=== PATIENT | female | born 1995 | race Caucasian/White ===

== ENCOUNTER → 2016-07-21 | Outpatient (REF) | payer BC | LOC: M LAB REF 09:10 | PROVIDERS: ATTEND Physician Assistant | DX: J02.9 Acute pharyngitis, unspecified (principal) ==

== ENCOUNTER → 2017-08-04 | Outpatient (REF) | payer BC | LOC: M LAB REF 18:31 | DX: Z12.4 Encounter for screening for malignant neoplasm of cervix (principal) | CPT/HCPCS: G0123 ==

== ENCOUNTER → 2018-10-13 | Outpatient (REF) | payer BC | LOC: M LAB REF 12:56 | PROVIDERS: ATTEND Advanced Practice Midwife | DX: Z12.4 Encounter for screening for malignant neoplasm of cervix (principal) ==

== ENCOUNTER → 2020-07-14 | Outpatient (REF) | payer BC | LOC: M SFHCWAGY 13:40 | PROVIDERS: ATTEND Advanced Practice Midwife | DX: Z12.4 Encounter for screening for malignant neoplasm of cervix (principal); R87.610 Atypical squamous cells of undetermined significance on cytologic smear of cervix (ASC-US) | CPT/HCPCS: 87624; G0123 ==

== ENCOUNTER → 2020-08-22 | Outpatient (REF) | payer BC ==
[2020-08-22 14:01] LABS: HEMATOCRIT 40.1 % (36.0-47.0); HEMOGLOBIN 13.4 g/dl (12.0-15.5); MEAN CORPUSCULAR HEMOGLOBIN 31.5 pg (27.0-33.0); MEAN CORPUSCULAR HGB CONC 33.4 g/dl (32.0-36.5); MEAN CORPUSCULAR VOLUME 94.4 fl (80.0-96.0); PLATELET COUNT, AUTOMATED 215 10^3/uL (150-450); RED BLOOD COUNT 4.25 10^6/uL (4.00-5.40); WHITE BLOOD COUNT 6.5 10^3/uL (4.0-10.0)
[2020-08-22 15:23] LABS: HEPATITIS C VIRUS ABY INDEX 0.1 INDEX (<0.8); HIV 1&2 SCREEN CENTAUR NEGATIVE (NEGATIVE)
[2020-08-22 15:47] LABS: CHLAMYDIA DNA AMPLIFICATION NEGATIVE (NEGATIVE); GC DNA AMPLIFICATION NEGATIVE (NEGATIVE)
== END ==
LOC: M PLALAB 10:26
PROVIDERS: ATTEND Advanced Practice Midwife
DX: Z34.01 Encounter for supervision of normal first pregnancy, first trimester (principal)

== ENCOUNTER → 2020-10-17 | Outpatient (CLI) | payer BC ==
--- NOTE | 2020-10-17 13:15 | REP ---
INDICATION: ANATOMY. COMPARISON: None. TECHNIQUE: Transabdominal FINDINGS: 03/16/ Today's sono findings = 18 weeks 4 days, MARGUERITE (today's sono) = 03/16/2021 via composite criteria Number: 1 Position: Breech Heart Rate: 134 BPM S/D Ratio: Not obtained Placental Position: Posterior Placenta Previa: None low Lying: No abruption: None Amniotic Fluid Volume: Subjectively within normal limits DINORA: Not calculated DINORA: Normal Range: cm Cervix Length 3.2 cm, and closed MEASUREMENTS: BPD: 4.1 centimeters, eighteen weeks 4 days HC: 15.5 centimeters, 18 weeks 3 days AC: 13.0 centimeters, 18 weeks 4 days FL: 2.8 centimeters, 18 weeks 4 days Estimated Weight: 246 grams 71 percentile Lateral Ventricle not obtained mm The following structures are visualized and are unremarkable: Thalami, cavum septum pellucidum, cerebellum, cisterna magna, cerebral ventricles, spine, kidneys, stomach, four-chamber heart, ventricular outflow tracts, urinary bladder, upper lip, spine, and upper lower extremities IMPRESSION: Single living intrauterine gestation as described above with an estimated gestational age of 18 weeks 4 days via composite criteria and an estimated date of delivery of 03/16/2021 by today's exam. No anomalies were detected. <Electronically signed by Bhargav Guajardo > 10/17/20 [id number]
== END ==
LOC: M WHC 11:35
PROVIDERS: ATTEND Advanced Practice Midwife
DX: Z36.89 Encounter for other specified antenatal screening (principal); Z3A.18 18 weeks gestation of pregnancy

== ENCOUNTER → 2020-11-14 | Outpatient (CLI) | payer BC ==
--- NOTE | 2020-11-16 07:21 | REP ---
INDICATION: F/U ANATOMY COMPARISON: 10/17/2020 TECHNIQUE: Transabdominal obstetrical ultrasound with color Doppler evaluation. FINDINGS: Examination demonstrates a single live intrauterine in cephalic presentation. motion is identified by technologist. Placenta is noted posterior and grade 1 without evidence for placenta previa or abruption. Amniotic fluid volume is normal. Cervix measures 4.2 cm in length and appears closed.. Gestational age by LMP and 1st U/S 22 weeks 1 days with MARGUERITE 03/19/2021. Gestational age by current measurements 22 weeks 3 days with MARGUERITE 03/17/2021. FHR equals 144 beats per minute. Estimated weight 492 grams (51stpercentile). Anatomical assessment demonstrates normal structures without obvious abnormality. IMPRESSION: Single live intrauterine in cephalic presentation demonstrating appropriate estimated weight and growth. No gross abnormalities are identified. <Electronically signed by Khang Barahona > 11/16/20 [id number]
== END ==
LOC: M WHC 14:27
PROVIDERS: ATTEND Advanced Practice Midwife
DX: Z34.02 Encounter for supervision of normal first pregnancy, second trimester (principal); Z3A.22 22 weeks gestation of pregnancy

== ENCOUNTER → 2021-02-23 | Outpatient (REF) | payer BC | LOC: M SFHCWAGY 12:51 | PROVIDERS: ATTEND Specialist | DX: Z36.89 Encounter for other specified antenatal screening (principal) ==

== ENCOUNTER 2021-03-27 13:11 | Inpatient (IN) | payer BC ==
[~2021-03-27] VITALS: Ht 162.6 cm; Wt 89.3 kg
[2021-03-27] VITALS (34 sets, daily range): BP systolic 124–201; BP diastolic 67–115
[2021-03-27] MEDS ORDERED: PRENTAB9 PO (13:21)
[2021-03-27] MEDS ORDERED: OXYTOCIN DRIP 30 UNITS in IV 1 EA IV PRN ×4 (13:25)
[2021-03-27] MEDS ORDERED: OXYTOCIN INJ 10 UNITS/ML VIAL (J2590) IM PRN (13:25)
[2021-03-27] MEDS ORDERED: CARBOPROST TROMETHAMINE 250 MCG/ML AMP IM PRN (13:25)
[2021-03-27] MEDS ORDERED: LIDOCAINE 1% MDV 20ML VIAL INFIL PRN (13:25)
[2021-03-27] MEDS ORDERED: TRANEXAMIC ACID INJection 1,000 MG in NS 100 ML IV PRN (13:25)
[2021-03-27] MEDS ORDERED: LR 1,000 ML IV SCH (13:30)
[2021-03-27] MEDS ORDERED: OXYTOCIN DRIP 30 UNITS in IV 1 EA IV SCH (13:30)
[2021-03-27 14:32] LABS: HEMATOCRIT 36.8 % (36.0-47.0); HEMOGLOBIN 12.2 g/dl (12.0-15.5); MEAN CORPUSCULAR HEMOGLOBIN 29.4 pg (27.0-33.0); MEAN CORPUSCULAR HGB CONC 33.2 g/dl (32.0-36.5); MEAN CORPUSCULAR VOLUME 88.7 fl (80.0-96.0); PLATELET COUNT, AUTOMATED 152 10^3/uL (150-450); RED BLOOD COUNT 4.15 10^6/uL (4.00-5.40)
[2021-03-27 15:31] LABS: ALT/SGPT 17 U/L (12-78); BILIRUBIN,TOTAL 0.4 MG/DL (0.2-1.0); CREATININE FOR GFR 0.73 MG/DL (0.55-1.30); GLOMERULAR FILTRATION RATE > 60.0 (>60); LDH LACTATE DEHYDROGENASE 335 U/L (84-246); URIC ACID 5.5 MG/DL (2.6-6.0)
[2021-03-27 16:24] LABS: CREATININE,RANDOM URINE 50.5 MG/DL; TOTAL PROTEIN,RANDOM URINE 20.9 MG/DL (0.0-12.0)
--- NOTE | 2021-03-27 17:28 | HPE ---
HISTORY AND PHYSICAL DATE OF ADMISSION: 03/27/2021 Barbie is a 26-year-old 1, para 0 at 41-1/7 weeks gestation, estimated date of confinement (EDC) of 03/09/2021 based on last menstrual period and confirmed by first-trimester ultrasound. She presents to labor and delivery today following routine appointment for a nonstress test and was noted to have mildly elevated blood pressure in the office and was sent over for evaluation and induction of labor. She does report some occasional contractions. Denies vaginal bleeding and leakage of fluid. Fetus has been active. She denies headache, visual disturbances, right upper quadrant pain, and epigastric discomfort. Her care was initiated at [facility] in the first trimester. course has been uncomplicated until today's presentation. OBSTETRIC HISTORY: Prima . OBSTETRIC LABORATORY DATA: A positive, antibody screen negative, syphilis negative, gonorrhea and chlamydia negative, hepatitis B negative, hepatitis C negative, HIV negative, rubella immune. Gestational diabetic screening normal at 100. Urine culture no growth. GBS is negative. PAST MEDICAL HISTORY: Noncontributory. SURGERIES: None. FAMILY HISTORY: Hypercholesterolemia and hypertension. SOCIAL HISTORY: The patient is a nonsomker. She denies alcohol and drug use. No history of sexual transmitted infections. She denies history of abuse, physical, sexual, and emotional. ALLERGIES: No known drug allergies. CURRENT MEDICATION: vitamin. OBJECTIVE: Blood pressure elevated upon arrival at 140/97. Followups 132/93. heart rate 140 with moderate variability, positive accelerations, negative decelerations. Contractions are every 2-4 minutes. They palpate mild. Abdomen is gravid. Cephalic presentation. Estimated weight 7-1/2 to 8 pounds. Sterile vaginal exam: 2 cm dilated 80% effaced, -3 station, soft. Positive bloody show with the exam. Pre-eclamptic profile returned uric acid of 5.5. AST 26, ALT 17. LDH 335. Hemoglobin 12.2, hematocrit 36.8, and platelets 152. Spot urine is pending at this time. ASSESSMENT: Intrauterine at 41-1/7 weeks, heart rate category 1. pre- eclampsia. PLAN: Per consult with Dr. Flora Eaton, admit to labor and delivery. Routine laboratory. Out of bed ad juvenal. Clear liquid diet at this time. Start intravenous (IV) Pitocin for labor induction. I did review risks, benefits, and alternatives with the patient and her partner. All of their questions have been answered. She has been verbally consented for emergency surgery and blood products if they are necessary. I do anticipate active labor and a vaginal delivery. The patient is desiring an epidural when she is in active labor. AILEEN
[2021-03-27] MEDS ORDERED: FENTANYL 2MCG/ML ROPIVACAINE 0.2% IN 0.9% NACL 100ML IVBAG As Ordered ONE (19:48)
[2021-03-27] MEDS ORDERED: ePHEDrine SULFATE 25 MG/5 ML(5MG/ML) SYRINGE As Ordered ONE (20:55)
[2021-03-27] MEDS ORDERED: ePHEDrine SULFATE 25 MG/5 ML(5MG/ML) SYRINGE IV PRN (21:20)
[2021-03-27] MEDS ORDERED: ONDANSETRON 4MG/2ML VIAL IV PRN ×4 (21:20→23:55)
[2021-03-27] MEDS ORDERED: EPIDURAL COMMENT XX SCH (21:20)
[2021-03-27] MEDS ORDERED: FENTANYL/ROPIVACAINE/NACL BAG 100 ML EPIDURAL SCH (21:20)
[2021-03-27] MEDS ORDERED: NALOXONE INJ 0.4MG/1ML VIAL (J2310 PER 1MG) IV PRN ×3 (21:20→22:27)
[2021-03-27] MEDS ORDERED: REFRIGERATOR IV KEYS XX PRN (21:20)
[2021-03-27] MEDS ORDERED: diphenhydrAMINE 50MG/ML VIAL (J1200) IV PRN ×2 (21:20→22:27)
[2021-03-27] MEDS ORDERED: LACTATED RINGER'S 1000 ML IV PRN (21:20)
[2021-03-27] MEDS ORDERED: EPIDURAL/PCA KEYS XX PRN (21:20)
[2021-03-27] MEDS ORDERED: AZITHROMYCIN INJ 500 MG, VIAL MATE ADAPTER 1 EACH in NS 250 ML IV ONE (22:00)
[2021-03-27] MEDS ORDERED: ceFAZolin SOD 2 GM in IV 1 EA IV ONE (22:00)
[2021-03-27] MEDS ORDERED: BICITRA 30ML SOLN UDC PO ONE (22:00)
[2021-03-27] MEDS ORDERED: NALBUPHINE HCL 10 MG/ML AMP (J2300) IV PRN (22:27)
[2021-03-27] MEDS ORDERED: METOCLOPRAMIDE INJ 10MG/2ML VIAL (J2765 PER 1) IV PRN (22:27)
[2021-03-27] MEDS ORDERED: OXYTOCIN INJ 10 UNITS/ML VIAL (J2590) As Ordered ONE (22:32)
[2021-03-27] MEDS ORDERED: MORPHINE PRES-FREE INJ 10 MG/10 ML VIAL (J2274) As Ordered ONE (22:32)
[2021-03-27 23:26] LABS: CORD GAS HCO3 V 23.2 MEQ/L; CORD GAS O2 SAT V 56.5 %; CORD GAS PCO2 V 49.6 mmHg; CORD GAS PH V 7.288 UNITS; CORD GAS PO2 V 28.4 mmHg; CORD GAS SBC V 20.1 MEQ/L; CORD GAS TCO2 V 24.7 MEQ/L
[2021-03-27 23:28] LABS: CORD GAS ABE A -7.5; CORD GAS HCO3 A 18.9 MEQ/L; CORD GAS O2 SAT A 95.2 %; CORD GAS PCO2 A 41.3 mmHg; CORD GAS PH A 7.278 UNITS; CORD GAS PO2 A 75.7 mmHg; CORD GAS SBC A 18.5 MEQ/L; CORD GAS TCO2 A 20.2 MEQ/L
[2021-03-27] MEDS ORDERED: RHOGAM 300 MCG (1500 IU) INJ (J2790) IM SCH (23:50)
[2021-03-27] MEDS ORDERED: SIMETHICONE 80MG CHEW TAB PO PRN (23:50)
[2021-03-27] MEDS ORDERED: MEASLES,MUMPS,RUBELLA VACCINE INJ (MMR-II) (90707) SC SCH (23:50)
[2021-03-27] MEDS ORDERED: oxyCODONE 5MG TAB PO PRN ×2 (23:50→23:55)
[2021-03-27] MEDS ORDERED: fentaNYL 100 MCG/2 ML INJECTION (J3010) IV PRN (23:55)
[2021-03-27] MEDS ORDERED: KETOROLAC 30 MG/ML 1ML VIAL IV PRN (23:55)
[2021-03-28] VITALS (7 sets, daily range): BP systolic 126–144; BP diastolic 70–93
--- NOTE | 2021-03-28 00:20 | ROOPDOC ---
[facility] Report Of Operation Report of Operation DATE OF PROCEDURE: 03/27/21 PREPROCEDURE DIAGNOSES: 1. Intrauterine gestation at term 2. intolerance of labor 3. Preeclampsia without severe features. POSTPROCEDURE DIAGNOSES: Same. PROCEDURE PERFORMED: Primary low transverse section. SURGEON: Flora Candelario MD SPRING MAKER: Marquita Gomez MD ANESTHESIA: Spinal. ESTIMATED BLOOD LOSS: Approximately 500 mL. IVF: 1500 crystalloid UOP: 100cc clear yellow OPERATIVE START TIME: 2237 OPERATIVE END TIME: 2337 TIME OF DELIVERY: 2246 TIME OF PLACENTA: 2248 COMPLICATIONS: Superficial laceration of arm. INDICATION FOR PROCEDURE: Patient is a 26-year-old G1, P0 at 41 weeks and 1 day estimated gestational age who presented to labor and delivery for induction of labor for a diagnosis of late term and elevated blood pressures. Once patient arrived to labor and delivery baseline labs were acquired which showed proteinuria giving her the diagnosis of preeclampsia without severe features. The patient was found to be 2 cm dilated and therefore the decision was made to start Pitocin. She progressed to 5 cm dilation and received an epidural. The heart tracing showed recurrent variable decelerations with moderate variability. After resuscitative measures failed to correct heart tracing to a category 1 the decision was made to proceed with a primary section. The risks and benefits were reviewed with the patient and informed consent was obtained. FINDINGS: Viable male weighing 3420g with Apgars of 6 and 9 at 1 and 5 minutes respectively. Compound presentation with bilateral arms around head. Right (posterior) arm needed to be reduced back through incision in order to deliver head. SPECIMENS REMOVED: placenta PROCEDURE NOTE: The patient was brought to the operating suite in stable condition for primary low transverse section with epidural anesthesia on board and an indwelling catheter in place in the bladder. The patient was not getting adequate anesthesia from the epidural and therefore the decision was made to proceed with a spinal. The patient was placed supine on the operating room table. The abdomen was prepped and draped in standard fashion for section. After testing with Lisette clamp to assure an adequate anesthetic level, the surgery was commenced. With the scalpel, a Pfannenstiel skin incision was made. Dissection was carried down sharply through the subcutaneous tissues to the underlying fascia. The fascia was knicked on either side of the midline and extended laterally using pick ups and curved Wilson scissors. The inferior aspect of the fascial incision was grasped with kolker clamps and elevated off the underlying rectus muscle with a scalpel. This process was then repeated with the lower aspect of the fascial incision. The peritoneum was identified and entered bluntly and was bluntly stretched laterally and cephalad. The vesicouterine junction was identified and a bladder flap was created by incising transversely through the peritoneum and vesicouterine fold and then bluntly dissecting the bladder distally. A mobius retractor was placed intra-abdominally. With the scalpel, a low transverse hysterotomy was commenced. The serosa and myometrium were scored with the scalpel. When the intrauterine cavity was entered, the arm was scored with the scalpel. The uterine incision was then extended laterally with the operators fingers. The infant hand protruded through the hysterotomy and had to be reduced several times before the delivery of the head could be achieved. An intrauterine hand was placed and the head of the infant was brought up out of the pelvis into the uterine incision. With fundal pressure, the infant was delivered without difficulty. The cord was doubly clamped and transected. The infant was then handed off to the nursery personnel. Due to prolonged length of delivery, a segment of cord was saved and cord gasses were collected. The placenta was manually removed. The uterine cavity was then curetted with a dry sponge and freed of the remaining membranes. The edges of the uterine incision were grasped with T clamps. The uterine incision was then closed in 2 layers of 0 Vicryl sutures. The pelvis and gutters were irrigated and suctioned and cleared of all blood and clots and amniotic fluid. The uterine incision was reinspected to assure hemostasis. The uterus, tubes and ovaries were inspected and were normal. Once we were satisfied with the hemostasis, the mobius retractor was removed and attention was turned to closure of the abdominal incision. The fascia was closed in layers using 0-Vicryl sutures. The subcutaneous tissue was closed with 3-0 vicryl suture. The skin was closed with a subcuticular suture of 4-0 monocryl followed by Steri-Strips and a optifoam dressing. The patient was moved to the recovery room in stable condition with the Arroyo catheter draining clear urine. Instruments, sponge and needle counts were reported as correct. FLORA CANDELARIO MD Mar 28, 2021 00:20
[2021-03-28] MEDS ORDERED: OXYC-517 PO (00:22)
[2021-03-28] MEDS ORDERED: KETOROLAC 30 MG/ML 1ML VIAL As Ordered ONE (00:32)
[2021-03-28] MEDS ORDERED: OXYTOCIN 30 UNITS IN 0.9% NaCl 500ML IV BAG (J2590) As Ordered ONE (00:32)
[2021-03-28] MEDS: OXYTOCIN DRIP 30 UNITS in IV 1 EA IV SCH ×2 (00:48→04:35)
[2021-03-28 07:23] LABS: HEMATOCRIT 30.7 % (36.0-47.0); MEAN CORPUSCULAR HGB CONC 32.2 g/dl (32.0-36.5); PLATELET COUNT, AUTOMATED 127 10^3/uL (150-450); RED BLOOD COUNT 3.41 10^6/uL (4.00-5.40); WHITE BLOOD COUNT 13.1 10^3/uL (4.0-10.0)
[2021-03-28 07:24] LABS: HEMOGLOBIN 9.9 g/dl (12.0-15.5)
[2021-03-28] MEDS: PRENATAL VITAMINS CHEWABLE TABLET PO SCH (08:27)
[2021-03-28] MEDS: KETOROLAC 30 MG/ML 1ML VIAL IV SCH ×3 (08:27→19:39)
[2021-03-28] MEDS: IBUPROFEN 800 MG TAB PO SCH ×3 (09:00→13:45)
[2021-03-28] MEDS: ACETAMINOPHEN 500 MG TAB PO SCH ×2 (10:23→18:18)
[2021-03-29] MEDS: ACETAMINOPHEN 500 MG TAB PO SCH ×4 (00:09→18:01)
[2021-03-29 02:00] VITALS: BP 143/87
[2021-03-29] MEDS: IBUPROFEN 600MG TAB PO SCH ×3 (03:22→15:06)
[2021-03-29 06:00] VITALS: BP 143/85
--- NOTE | 2021-03-29 09:06 | IPNPDOC ---
Progress Note Date of Service: Mar 29, 2021 Day#: 2 Progress Note SUBJECT: Patient is a 26-year-old G 1 P 1 status post uncomplicated primary low transverse section at 41-1/7 weeks' doing well day #2. She has been ambulating, voiding spontaneously without issue and tolerating regular diet. Breast feeding without issue. Reports lochia is like a normal period. Patient is ambulating well. Reports some cramping, well controlled with medication. Voiding and ambulating without difficulty. She is passing flatus. She denies headaches vision changes or right upper quadrant pain. OBJECTIVE: VITAL SIGNS: Within normal limits, afebrile. Alert and oriented times three. Breath sounds clear to auscultation. Heart rate: Regular rate and rhythm, no murmurs, rubs or gallops. Abdomen: Fundus firm at U-2. Soft, appropriately tender to palpation. Incision c/d/i Minimal to moderate lochia. ASSESSMENT: Patient is a 26-year-old G 1 P 1 status post uncomplicated primary low-transverse section for intolerance of labor after presenting to labor and delivery for late term induction. Doing well on day 2. Vitals within normal limits, afebrile, hemodynamically stable with no evidence of infection. PLAN: 1. Discharge to home today if infant is cleared for discharge 2. Tylenol and Motrin for pain. We will send Rx for oxycodone as needed 3. Encourage breast feeding and ambulation. 4. Patient considering contraception undecided at this time 5. Patient to call the office and schedule blood pressure check in 1 week with routine PP visit in 6 weeks in clinic. 6. Discussed return precautions at length including preeclamptic precautions. VS, I&O, 24H, Fishbone Vital Signs/I&O Vital Signs Date Time Temp Pulse Resp B/P (MAP) Pulse Ox O2 Delivery O2 Flow Rate FiO2 03/29/21 06:00 97.6 69 16 143/85 (104) 98 Room Air I&O- Last 24 Hours up to 6 AM 03/29/21 06:00 Intake Total 800 ml Output Total 700 ml Balance 100 ml KENDALL CANDELARIO MD Mar 29, 2021 09:06
[2021-03-29] MEDS ORDERED: IBUP-1022 PO (09:08)
[2021-03-29] MEDS ORDERED: ACET-683 PO (09:08)
[2021-03-29] MEDS: PRENATAL VITAMINS CHEWABLE TABLET PO SCH (09:21)
== END 2021-03-29 19:35 | disposition home or self-care (01) | DRG 540 ==
LOC: M LDI 13:11 → M OBS 03-28 13:42
PROVIDERS: ADMIT Advanced Practice Midwife; ATTEND Obstetrics & Gynecology
PROC: 3E033VJ Introduction of Other Hormone into Peripheral Vein, Percutaneous Approach (ICD-10-PCS; 2021-03-27)
PROC: 10D00Z1 Extraction of Products of Conception, Low, Open Approach (ICD-10-PCS; principal; 2021-03-27 22:20)
DX: O14.04 Mild to moderate pre-eclampsia, complicating childbirth (principal); O48.0 Post-term pregnancy; Z3A.41 41 weeks gestation of pregnancy; O76 Abnormality in fetal heart rate and rhythm complicating labor and delivery; Z37.0 Single live birth

== ENCOUNTER → 2021-12-02 | Outpatient (REF) | payer BC ==
[~2021-12-02] MED LIST: ACET-683 PO; IBUP-1022 PO; OXYC-517 PO; PRENTAB9 PO
== END ==
LOC: M PLALAB 14:37
PROVIDERS: ATTEND Obstetrics & Gynecology
DX: Z53.9 Procedure and treatment not carried out, unspecified reason (principal)

== ENCOUNTER → 2021-12-02 | Outpatient (REF) | payer BC | LOC: M SFHCWAGY 17:10 | PROVIDERS: ATTEND Obstetrics & Gynecology | DX: Z12.4 Encounter for screening for malignant neoplasm of cervix (principal) ==

== ENCOUNTER → 2023-02-25 | Outpatient (CLI) | payer BC ==
[2023-02-25 08:31] LABS: BASO % 0.3 % (0.0-1.0); EOS # 0.1 10^3/uL (0.0-0.5); EOS % 1.9 % (0.0-3.0); HEMATOCRIT 39.8 % (36.0-47.0); HEMOGLOBIN 12.9 g/dl (12.0-15.5); LYMPH # 1.4 10^3/uL (1.5-5.0); MEAN CORPUSCULAR HEMOGLOBIN 30.3 pg (27.0-33.0); MEAN CORPUSCULAR HGB CONC 32.4 g/dl (32.0-36.5); MEAN CORPUSCULAR VOLUME 93.4 fl (80.0-96.0); MONO # 0.4 10^3/uL (0.0-0.8); MONO % 5.8 % (2.0-8.0); NEUTROPHILS # 4.5 10^3/uL (1.5-8.5); NEUTROPHILS % 69.4 % (36.0-66.0); PLATELET COUNT, AUTOMATED 227 10^3/uL (150-450); RED BLOOD COUNT 4.26 10^6/uL (4.00-5.40); WHITE BLOOD COUNT 6.4 10^3/uL (4.0-10.0)
[2023-02-25 09:05] LABS: FERRITIN 9.1 NG/ML (7.3-270.7); IRON (FE) 66 UG/DL (50-170); PERCENT SATURATION 19.1 % (13.2-45.0); THYROID STIMULATING HORMONE 5.566 uIU/ML (0.55-4.78); TOTAL IRON BINDING CAPACITY 346 UG/DL (250-425)
[2023-02-25 09:06] LABS: ALBUMIN 3.9 G/DL (3.2-5.2); ALKALINE PHOSPHATASE 44 U/L (46-116); ALT/SGPT < 9 U/L (7.0-40); AST/SGOT < 8 U/L (<34); BILIRUBIN,TOTAL 0.8 MG/DL (0.3-1.2); BLOOD UREA NITROGEN 10 MG/DL (9-23); CALCIUM LEVEL 9.2 MG/DL (8.5-10.1); CARBON DIOXIDE LEVEL 28 MMOL/L (20-31); CHLORIDE LEVEL 108 MMOL/L (98-107); CHOLESTEROL LEVEL 202 MG/DL (<200); CHOLESTEROL RISK RATIO 5.03 (<5); CREATININE FOR GFR 0.62 MG/DL (0.55-1.30); GLOMERULAR FILTRATION RATE > 60.0 (>60); GLUCOSE, FASTING 86 MG/DL (60-100); HDL CHOLESTEROL 40.1 MG/DL (>40); LDL CHOLESTEROL 145.7 MG/DL (<100); NON-HDL-C 161.9 MG/DL; POTASSIUM SERUM 4.5 MMOL/L (3.5-5.1); SODIUM LEVEL 143 MMOL/L (136-145); TOTAL PROTEIN 6.8 G/DL (5.7-8.2); TRIGLYCERIDES LEVEL 81 MG/DL (<150)
[2023-02-25 09:07] LABS: VITAMIN B12 LEVEL 325 PG/ML (211-911)
[2023-02-25 09:08] LABS: FOLATE > 24.0 NG/ML (>5.4)
== END ==
LOC: M LAB 07:40
PROVIDERS: ATTEND Physician Assistant
DX: Z01.89 Encounter for other specified special examinations (principal); Z13.29 Encounter for screening for other suspected endocrine disorder; Z13.220 Encounter for screening for lipoid disorders; Z13.1 Encounter for screening for diabetes mellitus; Z86.79 Personal history of other diseases of the circulatory system

== ENCOUNTER → 2023-04-14 | Outpatient (CLI) | payer BC ==
[2023-04-14 16:10] LABS: FREE T4 1.17 NG/DL (0.89-1.76); THYROID STIMULATING HORMONE 3.87 uIU/ML (0.55-4.78)
== END ==
LOC: M LAB 14:43
PROVIDERS: ATTEND Physician Assistant
DX: R79.89 Other specified abnormal findings of blood chemistry (principal)

== ENCOUNTER → 2023-08-19 | Outpatient (CLI) | payer BC | LOC: M PLAIMG 09:20 | PROVIDERS: ATTEND Physician Assistant | DX: M54.50 Low back pain, unspecified (principal) ==

== ENCOUNTER → 2024-02-22 | Outpatient (CLI) | payer BC ==
[2024-02-22 13:07] LABS: BASO % 0.3 % (0.0-1.0); EOS # 0.1 10^3/uL (0.0-0.5); EOS % 1.6 % (0.0-3.0); HEMATOCRIT 42.2 % (36.0-47.0); HEMOGLOBIN 14.1 g/dl (12.0-15.5); LYMPH # 1.8 10^3/uL (1.5-5.0); LYMPH % 27.5 % (24.0-44.0); MEAN CORPUSCULAR HEMOGLOBIN 31.1 pg (27.0-33.0); MEAN CORPUSCULAR HGB CONC 33.4 g/dl (32.0-36.5); MONO # 0.5 10^3/uL (0.0-0.8); MONO % 6.9 % (2.0-8.0); NEUTROPHILS # 4.2 10^3/uL (1.5-8.5); NEUTROPHILS % 63.3 % (36.0-66.0); PLATELET COUNT, AUTOMATED 234 10^3/uL (150-450); RED BLOOD COUNT 4.54 10^6/uL (4.00-5.40); WHITE BLOOD COUNT 6.7 10^3/uL (4.0-10.0)
[2024-02-22 13:31] LABS: FERRITIN 40.4 NG/ML (7.3-270.7); TOTAL 25(OH) VITAMIN D 39.8 NG/ML (20.0-100.0)
[2024-02-22 13:32] LABS: IRON (FE) 131 UG/DL (50-170); THYROID STIMULATING HORMONE 2.562 uIU/ML (0.55-4.78)
[2024-02-22 13:33] LABS: FREE T4 1.32 NG/DL (0.89-1.76)
[2024-02-22 13:34] LABS: ALBUMIN 4.4 G/DL (3.2-5.2); ALKALINE PHOSPHATASE 56 U/L (46-116); ALT/SGPT 12 U/L (7.0-40); AST/SGOT < 8 U/L (<34); BILIRUBIN,TOTAL 1.1 MG/DL (0.3-1.2); BLOOD UREA NITROGEN 12 MG/DL (9-23); CALCIUM LEVEL 9.7 MG/DL (8.5-10.1); CARBON DIOXIDE LEVEL 28 MMOL/L (20-31); CHLORIDE LEVEL 108 MMOL/L (98-107); CHOLESTEROL LEVEL 219 MG/DL (<200); CHOLESTEROL RISK RATIO 5.77 (<5); CREATININE FOR GFR 0.68 MG/DL (0.55-1.30); GLOMERULAR FILTRATION RATE > 60.0 (>60); GLUCOSE, FASTING 71 MG/DL (60-100); HDL CHOLESTEROL 37.9 MG/DL (>40); LDL CHOLESTEROL 157.9 MG/DL (<100); NON-HDL-C 181.1 MG/DL; PERCENT SATURATION 38.5 % (13.2-45.0); POTASSIUM SERUM 4.5 MMOL/L (3.5-5.1); SODIUM LEVEL 142 MMOL/L (136-145); TOTAL IRON BINDING CAPACITY 340 UG/DL (250-425); TOTAL PROTEIN 7.4 G/DL (5.7-8.2); TRIGLYCERIDES LEVEL 116 MG/DL (<150)
== END ==
LOC: M PLALAB 09:25
PROVIDERS: ATTEND Physician Assistant
DX: E78.00 Pure hypercholesterolemia, unspecified (principal); E61.1 Iron deficiency; R94.6 Abnormal results of thyroid function studies; Z91.09 Other allergy status, other than to drugs and biological substances

== ENCOUNTER → 2025-02-21 | Outpatient (CLI) | payer BC ==
[2025-02-21 11:47] LABS: PLATELET COUNT, AUTOMATED 263 10^3/uL (150-450)
[2025-02-21 11:58] LABS: IRON (FE) 145.0 UG/DL (50-170); PERCENT SATURATION 45.7 % (13.2-45.0)
[2025-02-21 12:32] LABS: CHOLESTEROL LEVEL 214.0 MG/DL (<200); CHOLESTEROL RISK RATIO 5.84 (<5); LDL CHOLESTEROL 153.6 MG/DL (<100); NON-HDL-C 177.4 MG/DL; TRIGLYCERIDES LEVEL 119.0 MG/DL (<150)
[2025-02-21 13:14] LABS: ESTIMATED AVERAGE GLUCOSE 103.0 MG/DL (60-110)
== END ==
LOC: M PLALAB 09:03
PROVIDERS: ATTEND Nurse Practitioner Family
DX: Z13.1 Encounter for screening for diabetes mellitus (principal); Z13.220 Encounter for screening for lipoid disorders; E61.1 Iron deficiency